=== PATIENT | male | born 1950 | race Caucasian/White ===

== ENCOUNTER 2017-08-04 10:40 | Inpatient (IN) | payer BC ==
[2017-08-04] VITALS (9 sets, daily range): BP systolic 88–131; BP diastolic 52–83; PULSE 80–95; TEMP 98.3–99.9
[2017-08-04 11:38] LABS: SYNOVIAL FL. MONONUCLEAR 15.4 % (0-75); SYNOVIAL FL. POLYMORPHONUCLEAR 84.6 % (0-25); SYNOVIAL FLUID RBC 1720000 /mm3 (0-0); SYNOVIAL FLUID WBC 3188 /mm3 (200-600)
[2017-08-04 11:40] LABS: SYNOVIAL FLUID APPEARANCE BLOODY; SYNOVIAL FLUID COLOR RED
[2017-08-05 01:46] VITALS: BP 114/72; PULSE 82; TEMP 98.2
[2017-08-05 06:05] VITALS: BP 122/64; PULSE 77; TEMP 98.3
[2017-08-05 09:57] LABS: MEAN CELL VOLUME 96 fl (80.0-100.0); MEAN CORPUSCULAR HGB CONC 32 g/dl (33.0-37.0); MEAN PLATELET VOLUME 7.5 fl (7.4-10.4); PLATELET COUNT 563 K/mm3 (130-400); RED BLOOD COUNT 2.95 M/mm3 (4.20-5.60); WHITE BLOOD COUNT 6.8 K/mm3 (4.8-10.8)
[2017-08-05 09:59] LABS: HEMATOCRIT 28.3 % (42.0-52.0); HEMOGLOBIN 9.1 g/dl (13.5-18.0); MEAN CORPUSCULAR HEMOGLOBIN 31 pg (27.0-31.0)
[2017-08-05 10:16] LABS: CALCIUM 9.3 mg/dL (8.4-10.2); CREATININE, serum 0.86 mg/dL (0.66-1.25); POTASSIUM 4.1 mmol/L (3.4-5.0)
[2017-08-05 10:27] LABS: C-REACTIVE PROTEIN 11.3 mg/dL (0.0-0.9)
[2017-08-05 10:40] VITALS: BP 110/63; PULSE 91; TEMP 98.9
[2017-08-05 10:45] LABS: ERYTHROCYTE SEDIMENTATION RATE 106 mm/hr (0-30)
[2017-08-05 13:31] VITALS: BP 108/69; PULSE 82; TEMP 99.2
[2017-08-05 17:04] VITALS: BP 103/71; PULSE 85; TEMP 99.4
[2017-08-05 22:19] VITALS: BP 104/66; PULSE 83; TEMP 99
[2017-08-06 05:43] VITALS: BP 111/67; PULSE 77; TEMP 98.8
[2017-08-06] MEDS ORDERED: ASPI325T6 PO (09:09)
[2017-08-06] MEDS ORDERED: CEPHALEXIN500 M1 PO (09:09)
[2017-08-06] MEDS ORDERED: NORCO 325 MG-51 TAB PO (09:09)
[2017-08-06 09:21] VITALS: BP 115/71; PULSE 77; TEMP 98.1
== END 2017-08-06 12:00 | disposition home or self-care (01) | DRG 488 ==
LOC: SURG 10:40
PROVIDERS: Orthopaedic Surgery
PROC: 0SBD4ZZ Excision of Left Knee Joint, Percutaneous Endoscopic Approach (ICD-10-PCS; 2017-08-04)
PROC: 0S9D4ZZ Drainage of Left Knee Joint, Percutaneous Endoscopic Approach (ICD-10-PCS; principal; 2017-08-04 14:00)
DX: T84.89XA Other specified complication of internal orthopedic prosthetic devices, implants and grafts, initial encounter (principal); M25.062 Hemarthrosis, left knee; M25.462 Effusion, left knee
CPT/HCPCS: J0171; J0690; J1170; J2704; J3010